=== PATIENT | female | born 1985 | race Caucasian/White ===

== ENCOUNTER 2018-03-13 01:33 | Emergency (ER) | payer OTHER ==
[~2018-03-13] VITALS: Ht 152.4 cm; Wt 67.6 kg
[2018-03-13 01:47] VITALS: BP 132/93
== END 2018-03-13 02:16 | disposition home or self-care (01) ==
LOC: ED 01:33
DX: L73.8 Other specified follicular disorders (principal); J45.909 Unspecified asthma, uncomplicated

== ENCOUNTER 2018-03-19 01:14 | Emergency (ER) | payer OTHER ==
[~2018-03-19] VITALS: Ht 154.9 cm; Wt 68.0 kg
[2018-03-19 01:20] VITALS: Ht 154.9 cm; Wt 68.0 kg
[2018-03-19 01:58] LABS: BASOPHIL % 0.1 % (0-2)
[2018-03-19 02:00] LABS: CALCIUM 8.2 mg/dL (8.5-10.1); CARBON DIOXIDE 16.1 mmol/L (21-32); CHLORIDE SERUM 103 mmol/L (98-107); CREATININE SERUM 0.9 mg/dL (0.6-1.0); GFR1 > 60 mL/min; GLUCOSE SERUM 101 mg/dL (74-106); POTASSIUM SERUM 3.1 mmol/L (3.5-5.1); SODIUM SERUM 140 mmol/L (136-145)
[2018-03-19 02:04] LABS: PLATELET COUNT 413 x10^3mcL (130-400)
[2018-03-19 02:14] LABS: ALBUMIN 4.2 g/dL (3.4-5.0); ALKALINE PHOSPHATASE 72 U/L (46-116); ALT/SGPT 57 U/L (14-59); AST/SGOT 33 U/L (15-37); BILIRUBIN TOTAL 0.25 mg/dL (0.20-1.00)
[2018-03-19 04:01] VITALS: BP 92/53
[2018-03-19 04:28] LABS: AMPHETAMINE QUAL UR NONE DETECTED (See below)
== END 2018-03-19 04:01 | disposition home or self-care (01) ==
LOC: ED 01:14
PROVIDERS: Emergency Medicine
DX: G40.909 Epilepsy, unspecified, not intractable, without status epilepticus (principal); E87.6 Hypokalemia; F10.129 Alcohol abuse with intoxication, unspecified; J45.909 Unspecified asthma, uncomplicated
CPT/HCPCS: G0480; J2060; J7030

== ENCOUNTER 2018-04-12 02:03 | Emergency (ER) | payer OTHER ==
[~2018-04-12] VITALS: Ht 157.5 cm; Wt 68.0 kg
[2018-04-12 02:10] VITALS: Ht 157.5 cm; Wt 68.0 kg
[2018-04-12 03:03] LABS: BASOPHIL % 0.3 % (0-2); PLATELET COUNT 234 x10^3mcL (130-400); RED CELL DISTRIBUTION WIDTH 13.7 % (11.5-14.5)
[2018-04-12 03:10] LABS: CARBON DIOXIDE 20.4 mmol/L (21-32); CHLORIDE SERUM 103 mmol/L (98-107); CREATININE SERUM 0.7 mg/dL (0.6-1.0); GFR1 > 60 mL/min; GLUCOSE SERUM 88 mg/dL (74-106); POTASSIUM SERUM 3.3 mmol/L (3.5-5.1); SODIUM SERUM 138 mmol/L (136-145)
[2018-04-12 03:23] LABS: ALBUMIN 3.9 g/dL (3.4-5.0); ALKALINE PHOSPHATASE 58 U/L (46-116); ALT/SGPT 48 U/L (14-59); AST/SGOT 32 U/L (15-37); BILIRUBIN TOTAL 0.33 mg/dL (0.20-1.00)
[2018-04-12 03:38] LABS: microscopic required? NO
[2018-04-12 04:32] LABS: urine erythrocyte NEGATIVE (NEGATIVE)
[2018-04-12 04:36] VITALS: BP 126/69
[2018-04-12 04:41] LABS: AMPHETAMINE QUAL UR NONE DETECTED (See below)
== END 2018-04-12 05:06 | disposition home or self-care (01) ==
LOC: ED 02:03
PROVIDERS: Emergency Medicine
DX: R56.9 Unspecified convulsions (principal); F10.129 Alcohol abuse with intoxication, unspecified; J45.909 Unspecified asthma, uncomplicated
CPT/HCPCS: 36415; G0480